=== PATIENT | male | born 1980 | race Caucasian/White ===

== ENCOUNTER 2016-08-18 16:09 | Emergency (ER) | payer BC, OTHER ==
[~2016-08-18] VITALS: Ht 175.3 cm; Wt 95.7 kg
[2016-08-18 16:22] VITALS: TEMP 36.8; Ht 175.3 cm; Wt 95.7 kg
--- NOTE | 2016-08-18 16:59 | EMERGENCY ROOM VISIT NOTE ---
ED Visit Note First contact with patient: 16:32 CHIEF COMPLAINT: Right warm area on his back. HISTORY of present illness: This 35-year-old male presents the ER with chief complaint of a red spot on his right upper back which is getting progressively larger. The patient noticed it 3 days ago and it was a size of a quarter. Now it is much larger. The patient also states that is warm to the touch. The patient states it is slightly painful but denies any itch. The patient is unsure if he got bit by a bug in the area. The patient denies any fever. The patient states he called his doctor but they could not get in until next week. REVIEW OF SYSTEMS: 6 system review was performed and was negative unless stated otherwise in history of present illness. PMH: The patient is healthy; there is no significant medical or surgical history. SOCIAL HISTORY: Patient lives at home. PHYSICAL EXAM: Vital Signs: Were reviewed Reviewed Nurse's notes. GENERAL: 35- year-old white male appears in no acute distress. MENTAL STATUS: Alert, oriented, and not in distress. SKIN: There is a 3.5 x 6 cm raised erythematous firm area on the right upper back without any surrounding erythema. There is no central fluctuance or pointing. There is no drainage. EMERGENCY DEPARTMENT COURSE: The patient was evaluated. I discussed with the patient that this could be a bug bite with a localized reaction or early cellulitis. To be on the safe side we will prophylactically treat with Keflex. The patient was in agreement with treatment plan. The patient was discharged home in stable condition. DIAGNOSIS: Early cellulitis right upper back DISCHARGE INSTRUCTIONS & TREATMENT: Take Keflex as prescribed. Symptoms may worsen in the first 24 hours but if they do not start to improve in 24 hours recommend follow-up with family physician or returning to the ER. Current/Historical Medications No Active Prescriptions or Reported Meds Allergies Coded Allergies: Penicillins (Unverified Allergy, Intermediate, HIVES, 07/20/15) Vital Signs Date Time Temp Pulse Resp B/P Pulse Ox O2 Delivery O2 Flow Rate FiO2 08/18/16 16:22 36.8 65 18 137/89 98 Room Air Departure Information Prescriptions No Active Prescriptions or Reported Meds Referrals Lanie Abrams M.D. (MEDICAL) (PCP) [facility] Instructions [facility]
[2016-08-18] MEDS ORDERED: CEPH500C2 PO (17:06)
[2016-08-18 17:11] VITALS: BP 130/84; PULSE 86; O2SAT 98
== END 2016-08-18 17:11 | disposition home or self-care (01) ==
LOC: C.EDB 16:11 → C.EDD 17:11
DX: L03.312 Cellulitis of back [any part except buttock and flank] (principal)